=== PATIENT | female | born 1975 | race Caucasian/White ===

== ENCOUNTER 2018-02-07 11:11 | Emergency (ER) | payer SELFPAY ==
[2018-02-07] MEDS: LIDOCAINE 1% (MPF) 5 ML VIAL INJ (11:57)
== END 2018-02-07 12:32 | disposition home or self-care (01) ==
LOC: FTE 11:11
DX: N75.1 Abscess of Bartholin's gland (principal); F17.210 Nicotine dependence, cigarettes, uncomplicated
CPT/HCPCS: 56420; 99283-25